=== PATIENT | female | born 2005 | race Caucasian/White ===

== ENCOUNTER 2024-01-20 22:22 | Emergency (ER) | payer OTHER ==
[~2024-01-20] VITALS: Ht 152.4 cm; Wt 45.4 kg
[2024-01-20 22:31] VITALS: BP 104/69; PULSE 81; RESP 16; TEMP 98; O2SAT 99
[2024-01-20] MEDS ORDERED: AMOX500C25 PO (23:28)
[2024-01-20] MEDS ORDERED: NAPR-54 PO (23:28)
[2024-01-20 23:35] VITALS: BP 120/79; PULSE 89; RESP 17; TEMP 98.4; O2SAT 99
== END 2024-01-20 23:34 | disposition home or self-care (01) ==
LOC: MED 22:22
DX: H66.92 Otitis media, unspecified, left ear (principal); J06.9 Acute upper respiratory infection, unspecified; Z79.899 Other long term (current) drug therapy
CPT/HCPCS: 99283

== ENCOUNTER 2024-04-09 06:54 | Emergency (ER) | payer OTHER ==
[~2024-04-09] VITALS: Ht 154.9 cm; Wt 43.5 kg
[~2024-04-09 06:54] MED LIST: AMOX500C25 PO; NAPR-337 PO
[2024-04-09 07:02] VITALS: BP 110/77; PULSE 84; RESP 18; TEMP 98.5; O2SAT 100
[2024-04-09] MEDS ORDERED: PRED20TA5 PO (07:29)
[2024-04-09] MEDS ORDERED: DIPH25TA53 PO (07:29)
[2024-04-09 07:30] VITALS: PULSE 80; RESP 18
[2024-04-09 07:33] VITALS: O2SAT 100
[2024-04-09 07:36] VITALS: BP 110/72
== END 2024-04-09 07:37 | disposition home or self-care (01) ==
LOC: MED 06:54
DX: R21 Rash and other nonspecific skin eruption (principal); L29.9 Pruritus, unspecified; R07.9 Chest pain, unspecified; R06.02 Shortness of breath; F17.200 Nicotine dependence, unspecified, uncomplicated; Z79.899 Other long term (current) drug therapy
CPT/HCPCS: 99283